=== PATIENT | male | born 1950 | race Caucasian/White ===

== ENCOUNTER 2016-11-25 06:53 | Day surgery (SDC) | payer OTHER, BC ==
--- NOTE | 2016-11-19 09:25 | HP ---
Chief Complaint - Chief Complaint Date of Service: 11/19/16 Chief Complaint: Need a colonoscopy History of Present Illness: 66 year old male who had a colonoscopy over ten years ago. He believes it was normal. He had another a few years before that and polyps were removed. No blood in stools or changes in bowel habits. He has no family history of colon cancers. He is quite active and no weight loss or night sweats. - Patient's Past Medical History Patient History - Medical: GERD, Kidney stone, Osteoarthritis, Other - diverticulitis,eustachian tube dysfunction, herniated cervical disc,allergic rhinitis, sinusitis. Patient History - Cardiac/Respiratory: Hypertension, Hyperlipidemia Patient History - Cancer: Skin Patient History - Surgical Procedures: Cholecystectomy, Colonoscopy, Total Knee Replacement - right, Other - arthroscopic shoulder surgery, skin cancer removal. Patient History - Other: None - Family History Family History:: no untoward family reactions to anesthesia, no familial bleeding tendencies, no family history of clotting disorders - Family History Father Family History - Medical: Family History - Cardiac/Respiratory: Coronary Heart Disease, Other Brother Family History - Cardiac/Respiratory: Myocardial Infarction Mother Family History - Medical: Family History - Cardiac/Respiratory: Coronary Heart Disease - Social History Living Situations: spouse Abuse History: No History of abuse Psych History: No pertinent hx Does anyone smoke in the home?: No Smoking Status: Never smoker Alcohol Use: rarely Drug Use: none - Immunizations Immunizations Up to Date: Yes Hx Pneumococcal Vaccination: Yes History of Influenza Vaccine: Yes Review Of Systems (GEN) - Review of Systems Generalized/Overall Review: Absent: Weakness, Chills, Fever, Malaise, Weight loss, Weight gain EENTM: Present: Nose Congestion. Absent: Eye Pain, Blurred Vision, Tearing, Throat Pain, Throat Swelling Respiratory: Absent: Cough, Shortness of Breath, Wheezing Cardiac: Absent: Chest Pain, Palpitations, Syncope Abdominal: Absent: Nausea, Abdominal Pain, Constipation, Diarrhea, Bright blood from rectum Genitourinary: Absent: Burning, Urgency, Nocturia Musculoskeletal: Present: Joint Pain - hands are the worse, then hips. Absent: Back Pain, Neck Pain Neurological: Absent: Headache, Anxiety, Depressed, Emotional Problems, Numbness , Seizure, Tingling, Weakness Skin: Absent: Dryness, Lesions, Bruising Endocrine: Present: No Symptoms Reported Allergies/Adverse Reactions: Allergies Allergy/AdvReac Type Severity Reaction Status Date / Time No Known Allergies Allergy Verified 11/19/16 09:32 Home Medications: HOME MEDICATIONS Atorvastatin Calcium [Lipitor] 20 mg PO DAILY 09/12/12 [Last Taken 03/04/15] Pantoprazole Sodium [Protonix] 40 mg PO DAILY 01/02/14 [Last Taken 03/04/15] Mometasone Furoate [Nasonex] 2 spray NS DAILY 06/08/14 [Last Taken 03/04/15] Acetaminophen [Tylenol] 650 mg PO QID PRN #0 tablet 03/05/15 [Last Taken Unknown ] Lisinopril [Zestril] 10 mg PO DAILY 03/05/15 [Last Taken 03/04/15] Exam - Exam Vital Signs: Vital Signs - Last Taken Temp 36.5 C 11/19/16 Pulse 68 11/19/16 Resp BP 122/75 11/19/16 Pulse Ox HT 6'1 Wt 225# Constitutional: Present: Alert, Oriented x3, Cooperative, Well developed, Well nourished, No distress, Looks Younger than stated age ENT Exam: Present: normal ENT inspection, hearing grossly normal Eye Exam: bilateral eye: normal inspection Neck: Present: full range of motion Breasts: Present: Exam deferred Respiratory: Present: chest non-tender, lungs clear, normal breath sounds, no respiratory distress, no accessory muscle use Cardiovascular/Chest: Present: normal peripheral pulses, regular rate, rhythm, no edema Abdomen: Present: Normal bowel sounds, soft, nontender /Rectal: Present: Exam deferred Extremity: Present: normal range of motion, non-tender, normal inspection, no pedal edema Skin Exam: Present: normal color, warm/dry Neurologic: Present: no motor/sensory deficits, alert, normal mood/affect, oriented x 3 Appearance: Present: appropriate appearance, appropriate insight, neat, no memory impairment Eye contact: Present: cooperative, good eye contact, normal speech Thoughts: Present: normal thought pattern, no apparent hallucination Assessment/Plan - Narrative Narrative: I discussed the [facility] for a colonoscopy with the possibility of polypectomy, biopsy and need for anesthesia and the SUPREP preparation. He understands and agrees. - Assessment/Plan (1) Family history of [place] (myocardial infarction) Problem: Chronic (2) Hyperlipemia Problem: Chronic (3) Hypertension Problem: Chronic (4) Arthritis Problem: Chronic (5) Encounter for screening colonoscopy Problem: Acute
[~2016-11-25 06:53] MED LIST: RINGERS SOLUTION,LACTATED 1,000 ML IV PRN
--- OUTSIDE RECORDS SUMMARY | 2016-11-25 06:57 | XMS REPORT | Continuity of Care Document ---
:1950 Author Organization [facility] ([facility]) Address [address] [place] [address] Phone [phone] Care Team Providers Name Role Phone Javon Luque Primary Care Provider [phone] Source Comments This disclosure is being made pursuant to the Care Everywhere program, applicable federal and state laws, and may not contain all informaitonavailable regarding this patient.[facility] ([facility]) Active Allergies and Adverse Reactions No Known Allergies Current Medications Prescription Sig. Disp. Refills Start Date End Date Status mometasone (NASONEX) 50 use 2 Sprays into Active mcg/Actuation nasal spray each nostril daily. ATORVASTATIN 20 mg tablet Take 20 mg by mouth 03/28/2015 Active daily LISINOPRIL 10 mg tablet Take 10 mg by mouth 03/06/2015 Active daily ranitidine 150 mg tablet Take 150 mg by Active mouth 2 times daily. Active Problems Problem Noted Date Chronic chest pain 04/03/2015 Overview: 2012 Adenosine MPI: Normal EF. No perfusion abnormalities. Normal study 2014 Treadmill MPI: Normal EF. No perfusion abnormalities. 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
[2016-11-25] MEDS ORDERED: RINGERS SOLUTION,LACTATED 1,000 ML IV ONE (07:28)
[2016-11-25] MEDS ORDERED: RINGERS SOLUTION,LACTATED 1,000 ML IV PRN (08:17)
--- NOTE | 2016-11-25 08:20 | OR ---
Operative Report - Dictated Report Narrative: DATE OF PROCEDURE: 11/25/2016 PREOPERATIVE DIAGNOSIS: #1 Screening colonoscopy POSTOPERATIVE DIAGNOSIS: #1 Screening colonoscopy #2 sigmoid diverticulosis OPERATION: Colonoscopy SURGEON: Jeferson Rey M.D. [facility] ANESTHESIA : Augustine Guillen CRNA sedation INDICATIONS: This is a 66 year old male who presents for a screening colonoscopy. I have discussed the risks, benefits, indications, and contraindications for colonoscopy with the possibility of biopsy and/or polypectomy. He understands, agrees, and wishes to proceed. He has undergone a SUPREP and has tolerated it well. PROCEDURE: The patient was brought to the operating theater and placed into the left lateral decubitus position. The patient underwent sedation per anesthesia , and a digital rectal exam was performed. This was noted to be unremarkable. The patient was noted to have no internal or external hemorrhoids. The Olympus video colonoscope was introduced and advanced into the rectum. The rectum was normal in appearance. The scope was then advanced through the sigmoid, where some scattered diverticular disease was noted. The scope was then advanced to the cecum using standard reduction techniques. The appendiceal orifice was noted. The ileocecal valve was noted. The prep appeared to be excellent with a [place] prep score of 9. The scope was withdrawn slowly as the ascending, transverse, descending, and sigmoid colon were examined in a circumferential fashion. The scope was brought back into the rectum where it was retroflexed in the lower rectum was examined. The air was decompressed, and the scope was then removed. Withdrawal time was 8 minutes. POSTOPERATIVE CONDITION: The patient was awakened and taken to the ambulatory surgery center in good condition. No complications were encountered. FINDINGS: A few scattered diverticuli Specimens: None EBL: 0 The findings were discussed with the patient and his . I recommend a follow -up colonoscopy in 10 years for screening purposes. Diverticulosis booklet was reviewed.
[2016-11-25 09:15] VITALS: BP 129/75
== END 2016-11-25 06:54 | disposition home or self-care (01) ==
LOC: AMB 06:53
PROVIDERS: ATTEND Surgery
PROC: 0DJD8ZZ Inspection of Lower Intestinal Tract, Via Natural or Artificial Opening Endoscopic (ICD-10-PCS; principal; 2016-11-25 07:50)
DX: Z12.11 Encounter for screening for malignant neoplasm of colon (principal); K57.30 Diverticulosis of large intestine without perforation or abscess without bleeding; I10 Essential (primary) hypertension; E78.5 Hyperlipidemia, unspecified; K21.9 Gastro-esophageal reflux disease without esophagitis; M19.90 Unspecified osteoarthritis, unspecified site; Z86.010 Personal history of colon polyps; Z68.30 Body mass index [BMI] 30.0-30.9, adult